=== PATIENT | female | born 2000 | race American Indian/Alaskan Native ===

== ENCOUNTER 2021-01-11 11:18 | Emergency (ER) | payer SELFPAY ==
[2021-01-11] MEDS ORDERED: ONDANSETRON 4 MG/2 ML INJ IV ONE ×2 (13:30→17:00)
[2021-01-11] MEDS ORDERED: SODIUM CHLORIDE 0.9% 1000 ML 1,000 ML IV ONE (13:30)
[2021-01-11] MEDS ORDERED: MORPHINE 2 MG/1 ML INJ IV ONE ×2 (13:31→17:00)
[2021-01-11] MEDS ORDERED: FAMOTIDINE 20 MG TAB PO ONE (13:31)
--- NOTE | 2021-01-11 13:32 | Emergency Department Report ---
ED Abdominal Pain HPI - General Chief Complaint: Nausea/Vomiting/Diarrhea Stated Complaint: NAUSEA VOMITING Time Seen by Provider: 01/11/21 13:05 Source: patient Mode of arrival: Ambulatory Limitations: No Limitations - History of Present Illness Initial Comments: 20-year-old female who reports history of GERD, and IBS presents to the ER today with complaints of nausea vomiting abdominal pain as well as URI symptoms and cough. Patient states that she has been having nausea and vomiting almost every day for several months. She states that she has seen a GI specialist in [place] 6 months ago and was told that her symptoms are likely related to IBS and prescribed her Linzess. She has also been seen her PCP was been prescribed omeprazole for symptoms for GERD. She states that the main reason she came in today is because this morning she had 3 episodes of coffee-ground emesis which is unusual for her. She also reports epigastric abdominal pain which she is also been having with the vomiting for a few months. She states that she has never had an endoscopy but when she was a teenager she did have a colonoscopy due to constipation. She states that she has not been constipated recently. She denies any diarrhea. She denies any UTI symptoms. She states that she drinks alcohol occasionally and denies any alcohol use last night. She does admit to marijuana use but no other illicit drug use. She is currently on her menstrual cycle. She is not currently on any control. Patient also reports that she has had a cough, with generalized body aches and chills since last Thursday. She did take a Covid PCR test last week and it was negative. MD Complaint: abdominal pain, other (Nausea, vomiting, cough, generalized body aches) -: days(s), month(s) Severity scale (0 -10): 8 - Related Data Previous Rx's Medication Instructions Recorded Last Taken Type Albuterol Mdi (or & Nicu Only) 2 puff IH QID PRN #8.5 gram 01/11/21 Unknown Rx [ProAir HFA Inhaler] Famotidine [Pepcid] 20 mg PO BID #30 tablet 01/11/21 Unknown Rx Ondansetron [Zofran Odt] 4 mg PO Q8HR #15 tab.rapdis 01/11/21 Unknown Rx Allergies Allergy/AdvReac Type Severity Reaction Status Date / Time grass pollen Allergy Itching Verified 01/11/21 11:31 shellfish derived Allergy Hives Verified 01/11/21 11:31 ED Review of Systems ROS: Stated complaint: NAUSEA VOMITING Other details as noted in HPI Comment: All other systems reviewed and negative Constitutional: chills. denies: fever ENT: denies: ear pain, throat pain Respiratory: cough. denies: shortness of breath, SOB with exertion, SOB at rest, wheezing Cardiovascular: denies: chest pain, palpitations Endocrine: no symptoms reported Gastrointestinal: abdominal pain, nausea, vomiting. denies: diarrhea, constipation, hematemesis, hematochezia Genitourinary: denies: urgency, dysuria, frequency, hematuria, discharge, abnormal menses, dyspareunia Musculoskeletal: myalgia. denies: back pain, joint swelling, arthralgia Skin: denies: rash, lesions, change in color, change in hair/nails, pruritus Neurological: denies: headache, weakness, numbness, paresthesias, confusion, abnormal gait, vertigo Psychiatric: denies: anxiety, depression, auditory hallucinations, visual hallucinations, homicidal thoughts, suicidal thoughts Hematological/Lymphatic: denies: easy bleeding, easy bruising, swollen glands ED Past Medical Hx - Past Medical History Additional medical history: GI SXS - Medications Home Medications: Home Medications Medication Instructions Recorded Confirmed Last Taken Type Albuterol Mdi (or & Nicu Only) 2 puff IH QID PRN #8.5 gram 01/11/21 Unknown Rx [ProAir HFA Inhaler] Famotidine [Pepcid] 20 mg PO BID #30 tablet 01/11/21 Unknown Rx Ondansetron [Zofran Odt] 4 mg PO Q8HR #15 tab.rapdis 01/11/21 Unknown Rx ED Physical Exam - General Limitations: No Limitations General appearance: alert, in no apparent distress - Head Head exam: Present: atraumatic, normocephalic, normal inspection - Eye Eye exam: Present: normal appearance, PERRL, EOMI Pupils: Present: normal accommodation - Neck Neck exam: Present: normal inspection, full ROM - Respiratory Respiratory exam: Present: normal lung sounds bilaterally, wheezes (Mild wheezing noted to the left lung cortez). Absent: respiratory distress, rales, rhonchi, stridor, chest wall tenderness, accessory muscle use, decreased breath sounds - Cardiovascular Cardiovascular Exam: Present: regular rate, normal rhythm, normal heart sounds - GI/Abdominal GI/Abdominal exam: Present: soft, tenderness (Epigastric), guarding (Epigastric). Absent: distended, rebound, rigid, normal bowel sounds, diminished bowel sounds - Neurological Exam Neurological exam: Present: alert, oriented X3, CN II-XII intact, normal gait - Psychiatric Psychiatric exam: Present: normal affect, normal mood - Skin Skin exam: Present: intact ED Course Vital Signs 01/11/21 01/11/21 11:51 17:55 Temperature 98.6 F Pulse Rate 88 75 Respiratory 20 Rate Blood Pressure 125/88 138/95 [Right] O2 Sat by Pulse 100 100 Oximetry ED Medical Decision Making - Lab Data Result diagrams: 01/11/21 14:59 01/11/21 14:59 - Radiology Data Radiology results: report reviewed Patient: JEWELL CELESTE MR#: [id number] 530 : 2000 Acct:[id number] Age/Sex: 20 / F ADM Date: 01/11/21 Loc: ED Attending Dr: Ordering Physician: SOSA BENJAMIN Date of Service: 01/11/21 Procedure(s): US abdomen limited Accession Number(s): [id number] cc: SOSA BENJAMIN LIMITED RUQ ABDOMINAL ULTRASOUND INDICATION: Epigastric pain. COMPARISON: No relevant prior imaging study available. FINDINGS: Pancreas: Visualized portions show no significant abnormality. Abdominal Aorta: No significant abnormality. IVC: No significant abnormality. Liver: The liver measures 15 cm in length. No significant abnormality. Normal hepatopedal blood flow in the main portal vein. Gallbladder: No significant abnormality. Bile ducts: No significant abnormality. Common bile duct measures 2 mm. Right kidney: No significant abnormality visualized. Free fluid: None. Additional Findings: None. IMPRESSION: No significant abnormality identified.. Signer Name: Jose Alfredo Chase Jr, MD Signed: 01/11/2021 2:38 PM Workstation Name: [id number] Transcribed By: TTR Dictated By: JOSE ALFREDO CHASE JR, MD Electronically Authenticated By: JOSE ALFREDO CHASE JR, MD Signed Date/Time: 01/11/218 DD/ 1437 Patient: JEWELL CELESTE MR#: [id number] 530 : 2000 Acct:[id number] Age/Sex: 20 / F ADM Date: 01/11/21 Loc: ED Attending Dr: Ordering Physician: SOSA BENJAMIN Date of Service: 01/11/21 Procedure(s): XR abd series w cxr 1V Accession Number(s): [id number] cc: SOSA BENJAMIN Fluoro Time In Minutes: ABDOMEN 3 VIEW(S) INDICATION / CLINICAL INFORMATION: Cough/nausea/vomiting/coffee-ground emesis. COMPARISON: None available. FINDINGS: TUBES / LINES: None. BOWEL GAS PATTERN: No significant abnormality. FREE AIR / EXTRALUMINAL GAS: None seen. ADDITIONAL FINDINGS: No significant abnormality is seen on the included chest radiograph. IMPRESSION: 1. No significant abnormality. Signer Name: Junaid Myers MD Signed: 01/11/2021 4:39 PM Workstation Name: [id number] Transcribed By: DEENA Dictated By: Junaid Myers MD Electronically Authenticated By: Junaid Myers MD Signed Date/Time: 01/11/211638 DD/ 37 TD/TT: - Medical Decision Making Gallbladder ultrasound negative for anything acute. Abdominal x-ray series shows nothing acute. Labs reviewed --CBC and CMP unremarkable. Lipase normal. hCG negative. Urinalysis, suspect to be probably more contaminated than true UTI. Reflex culture pending. Will monitor culture, and if positive patient will be started on antibiotics then. Patient reevaluation--patient reports feeling better after IV fluids and meds. She has been observed sitting in her recliner playing on her phone. She is currently not toxic or ill-appearing. She is neurologically intact with a normal gait. She has not had any vomiting after the IV fluids and meds. Discussed all results with patient. She did have some mild wheezing on exam, and so I suspect her cough could be related to bronchitis. Her GI complaints have been going on for few months, this is likely chronic, coffee-ground emesis that she reported seen could be related to her severe vomiting or peptic ulcer disease. Patient has not gotten any endoscopy and so recommend follow-up with GI specialist for additional evaluation including endoscopy. In the meantime I recommended that she continue omeprazole, will add Pepcid and Zofran to her regimen. Patient expressed understanding of all instructions and agree with plan. Patient was stable at time of discharge. Critical care attestation.: If time is entered above; I have spent that time in minutes in the direct care of this critically ill patient, excluding procedure time. ED Disposition Clinical Impression: Nausea and vomiting, Epigastric pain, Acute bronchitis, GERD (gastroesophageal reflux disease) Disposition: 01 HOME / SELF CARE / HOMELESS Is pt being admited?: No Does the pt Need Aspirin: No Condition: Stable Instructions: Nausea and Vomiting, Adult, Gnxz-[id number], Gastroesophageal Reflux Disease, Adult, [id number], Acute Bronchitis, Adult, Acute Bronchitis (ED) Additional Instructions: Recommend he continue taking the omeprazole. Can take the omeprazole and the Pepcid together. Take the Zofran as prescribed to help with any nausea or vomiting. Use the inhaler as prescribed to help with wheezing and you can take usza-nnx-hxkxbyd Robitussin or Mucinex to help with your cough. I do recommend following up with a GI specialist for further evaluation of your abdominal pain/nausea and vomiting and to possibly get an endoscopy. I also do recommend an outpatient COVID-19 test, which she can get at any local pharmacy or urgent care. Return to the ER if symptoms changes or worsens in any way. Prescriptions: Famotidine [Pepcid] 20 mg PO BID #30 tablet Albuterol Mdi (or & Nicu Only) [ProAir HFA Inhaler] 2 puff IH QID PRN #8.5 gram PRN Reason: Shortness Of Breath Ondansetron [Zofran Odt] 4 mg PO Q8HR #15 tab.rapdis Referrals: ANJEL ALMENDAREZ MD [Staff Physician] - 3-5 Days [facility] [Provider Group] - 3-5 Days Forms: Work/School Release Form(ED) Time of Disposition: 17:06
--- NOTE | 2021-01-11 14:43 | Ultrasound Report ---
LIMITED RUQ ABDOMINAL ULTRASOUND INDICATION: Epigastric pain. COMPARISON: No relevant prior imaging study available. FINDINGS: Pancreas: Visualized portions show no significant abnormality. Abdominal Aorta: No significant abnormality. IVC: No significant abnormality. Liver: The liver measures 15 cm in length. No significant abnormality. Normal hepatopedal blood flow in the main portal vein. Gallbladder: No significant abnormality. Bile ducts: No significant abnormality. Common bile duct measures 2 mm. Right kidney: No significant abnormality visualized. Free fluid: None. Additional Findings: None. IMPRESSION: No significant abnormality identified.. Signer Name: Jose Alfredo Chase Jr, MD Signed: 01/11/2021 2:38 PM Workstation Name: [id number]
[2021-01-11 15:05] LABS: Bacteria,Urine 1+ /HPF (Negative); Bilirubin,Urine NEG (Negative); Blood,Urine LG (Negative); Color,Urine Yellow (Yellow); Mucus,Urine 3+ /HPF; Urobilinogen,Urine < 2.0 mg/dL (<2.0)
[2021-01-11 15:27] LABS: Basophils # (Auto) 0.1 K/mm3 (0.0-0.1); Basophils % (Auto) 0.6 % (0.0-1.8); Hematocrit 44.6 % (30.3-42.9); Hemoglobin 14.2 gm/dl (10.1-14.3); Lymphocytes % (Auto) 23.3 % (13.4-35.0); Mean Corpuscular HGB Conc 32 % (30-34); Mean Corpuscular Volume 86 fl (79-97); Monocytes # (Auto) 0.4 K/mm3 (0.0-0.8); Monocytes % (Auto) 4.7 % (0.0-7.3); Platelet Count 317 K/mm3 (140-440); Red Blood Count 5.18 M/mm3 (3.65-5.03); Red Cell Distribution Width 12.4 % (13.2-15.2)
[2021-01-11 15:44] LABS: Alanine Aminotransferase 9 units/L (7-56); Albumin 4.8 g/dL (3.9-5); Blood Urea Nitrogen 7 mg/dL (7-17); Calcium 9.3 mg/dL (8.4-10.2); Hemolysis Index 5
[2021-01-11 15:47] LABS: BUN/Creatinine Ratio 12
--- NOTE | 2021-01-11 16:43 | XRay Report ---
ABDOMEN 3 VIEW(S) INDICATION / CLINICAL INFORMATION: Cough/nausea/vomiting/coffee-ground emesis. COMPARISON: None available. FINDINGS: TUBES / LINES: None. BOWEL GAS PATTERN: No significant abnormality. FREE AIR / EXTRALUMINAL GAS: None seen. ADDITIONAL FINDINGS: No significant abnormality is seen on the included chest radiograph. IMPRESSION: 1. No significant abnormality. Signer Name: Junaid Myers MD Signed: 01/11/2021 4:39 PM Workstation Name: [id number]
[2021-01-11 17:55] VITALS: BP 138/95
== END 2021-01-11 17:55 | disposition home or self-care (01) ==
LOC: ED 11:18
DX: R11.2 Nausea with vomiting, unspecified (principal); R10.13 Epigastric pain; J20.9 Acute bronchitis, unspecified; K21.9 Gastro-esophageal reflux disease without esophagitis; Z91.048 Other nonmedicinal substance allergy status; Z91.013 Allergy to seafood
CPT/HCPCS: 36415; 74022; 76705; 80053; 81001; 83690; 83735; 84484; 84703; 85025; 87086; 96361; 96374; 96375; 99284; J2270; J2405; J7030; Q0162